=== PATIENT | female | born 1995 | race Caucasian/White ===

== ENCOUNTER 2017-09-07 19:22 | Inpatient (IN) | END 2017-09-10 21:00 | disposition home or self-care (01) | DRG 446 ==

== ENCOUNTER 2017-12-30 15:10 | Emergency (ER) | END 2017-12-30 17:35 | disposition home or self-care (01) ==

== ENCOUNTER 2018-06-17 10:05 | Emergency (ER) | payer OTHER ==
[~2018-06-17] VITALS: Ht 167.6 cm; Wt 76.7 kg
[~2018-06-17 10:05] MED LIST: AMOX1TAB9 PO; LEVE-5 PO; PRENAT PO
[2018-06-17 10:19] VITALS: Ht 167.6 cm; Wt 76.7 kg
[2018-06-17] MEDS ORDERED: ONDANSETRON (ODT) 4 MG TAB ODT STA (12:01)
[2018-06-17] MEDS ORDERED: KETOROLAC 30 MG INJ IM STA (12:01)
--- NOTE | 2018-06-17 12:09 | ERD ---
ER Documentation Chief Complaint Chief Complaint Complains of nausea and vomiting with diarrhea x 3 days HPI 22-year-old female presents for evaluation of vomiting x1 day. Patient admits to 10 episodes of vomiting in the past 24 hours with associated diarrhea. Admits to eating out at [employer] before onset of symptoms. Patient expresses concern over history of gallstones, and states presentation similar to previous episode. Patient denies any alleviating factors states symptoms have been stable with no improvement or worsening over the past 24 hours. No recent fevers, no SOB. ROS All systems reviewed and are negative except as per history of present illness. Medications Home Meds Active Scripts Ondansetron (Ondansetron Odt) 4 Mg Tab.rapdis, 4 MG PO Q6H PRN for NAUSEA AND/OR VOMITING, #10 TAB Prov:STEPHAN LEIVA PA-C 06/17/18 Levetiracetam* (Keppra*) 500 Mg Tablet, 500 MG PO BID, #60 TAB Prov:IESHA STREETER MD 12/30/17 Amoxicillin/Potassium Clav (Amox-Clav 500-125 mg Tablet) 500-125 mg Tab, 1 TAB PO BID for 4 Days, #8 TAB Prov:JOSE CARLOS WAY MD 09/10/17 Reported Medications Multivit/Min/Fol Ac/Iron/Pren* ( S*) 1 Tab Tab, 1 TAB PO DAILY, TAB 10/16/15 Allergies Allergies: Coded Allergies: No Known Allergy (Unverified , 01/17/15) PMhx/Soc History of Surgery: Yes (EMERGENCY X1, LIPOSUCTION + TUMMY TUCK ) Anesthesia Reaction: No Hx Neurological Disorder: No Hx Respiratory Disorders: No Hx Cardiac Disorders: No Hx Psychiatric Problems: No Hx Miscellaneous Medical Probl: No Hx Alcohol Use: No Hx Substance Use: Yes (PER PT., SHE SMOKES MARIJUANA DAILY) Hx Tobacco Use: No Smoking Status: Never smoker FmHx Family History: No diabetes, No coronary disease, No other Physical Exam Vitals Vital Signs Date Temp Pulse Resp B/P (MAP) Pulse Ox O2 O2 Flow FiO2 Time Delivery Rate 06/17/18 82 18 120/65 Room Air 14:09 (83) 06/17/18 98.5 80 20 129/70 98 10:19 (89) Physical Exam Const: No acute distress Head: Atraumatic Eyes: Normal Conjunctiva ENT: Normal External Ears, Nose and Mouth. Moist mucous membranes. Neck: Full range of motion. No meningismus. Resp: Clear to auscultation bilaterally Cardio: Regular rate and rhythm, no murmurs Abd: Soft, non tender, non distended. Normal bowel sounds. Positive Abad sign. No right lower quadrant tenderness. Skin: No petechiae or rashes. Turgor appropriate. Back: No midline or flank tenderness. Full range of motion. No CVA tenderness. Ext: No cyanosis, or edema. Cap refill less than 2 seconds. Neur: Awake and alert Psych: Normal Mood and Affect Result Diagram: 06/17/18 1211 06/17/18 1211 Results 24 hrs Laboratory Tests Test 06/17/18 12:09 06/17/18 12:11 06/17/18 12:21 POC Beta HCG, Qualitative POSITIVE White Blood Count 10.4 10^3/ul Red Blood Count 5.05 10^6/ul Hemoglobin 15.0 g/dl Hematocrit 44.5 % Mean Corpuscular Volume 88.1 fl Mean Corpuscular Hemoglobin 29.7 pg Mean Corpuscular 33.7 g/dl Hemoglobin Concent Red Cell Distribution Width 12.9 % Platelet Count 323 10^3/UL Mean Platelet Volume 10.5 fl Immature Granulocytes % 0.300 % Neutrophils % 81.2 % Lymphocytes % 10.0 % Monocytes % 6.0 % Eosinophils % 2.2 % Basophils % 0.3 % Nucleated Red Blood Cells % 0.0 /100WBC Immature Granulocytes # 0.030 10^3/ul Neutrophils # 8.4 10^3/ul Lymphocytes # 1.0 10^3/ul Monocytes # 0.6 10^3/ul Eosinophils # 0.2 10^3/ul Basophils # 0.0 10^3/ul Nucleated Red Blood Cells # 0.0 10^3/ul Prothrombin Time 12.2 Sec Prothrombin Time Ratio 1.0 INR International 0.89 Normalized Ratio Activated Partial Thromboplast 26.9 Sec Time Urine Color YELLOW Urine Clarity CLOUDY Urine pH 5.0 Urine Specific [place] 1.028 Urine Ketones NEGATIVE mg/dL Urine Nitrite NEGATIVE mg/dL Urine Bilirubin NEGATIVE mg/dL Urine Urobilinogen NEGATIVE mg/dL Urine Leukocyte Esterase NEGATIVE Flory/ul Urine Microscopic RBC 2 /HPF Urine Microscopic WBC 3 /HPF Urine Squamous Epithelial Cells FEW /HPF Urine Bacteria FEW /HPF Urine Mucus MANY /HPF Urine Hemoglobin 1+ mg/dL Urine Glucose NEGATIVE mg/dL Urine Total Protein 1+ mg/dl Sodium Level 141 mmol/L Potassium Level 3.8 mmol/L Chloride Level 109 mmol/L Carbon Dioxide Level 20 mmol/L Anion Gap 12 Blood Urea Nitrogen 12 mg/dl Creatinine 0.61 mg/dl Est Glomerular Filtrat > 60 mL/min Rate mL/min Glucose Level 105 mg/dl Calcium Level 9.6 mg/dl Total Bilirubin 0.6 mg/dl Direct Bilirubin 0.00 mg/dl Indirect Bilirubin 0.6 mg/dl Aspartate Amino 22 IU/L Transf (AST/SGOT) Alanine 24 IU/L Aminotransferase (ALT/SGPT) Alkaline Phosphatase 86 IU/L Total Protein 8.5 g/dl Albumin 4.6 g/dl Globulin 3.90 g/dl Albumin/Globulin Ratio 1.17 Lipase 51 U/L Beta HCG, Quantitative 83274.0 mIU/ml Current Medications Medications Dose Sig/Georgette Start Time Status Last (Trade) Ordered Route PRN Stop Time Admin Dose Reason Admin Ondansetron 4 mg ONCE STAT 06/17/18 DC 06/17/18 HCl (Zofran ODT 12:01 06/17/18 12:19 Odt) 12:03 Ketorolac 30 mg ONCE STAT 06/17/18 DC Tromethamine IM 12:06/17/18 (Toradol) 12:19 650 mg ONCE STAT 06/17/18 DC 06/17/18 Acetaminophen PO 12:18 06/17/18 12:24 (Tylenol 12:20 Tab) Procedures/MDM PROCEDURE: US Abdomen. CLINICAL INDICATION: abdominal pain TECHNIQUE: Multiple real-time images were acquired of the patient's right upper quadrant abdomen and retroperitoneum utilizing a high resolution transducer. COMPARISON: 09/07/17 FINDINGS: The liver demonstrates normal echogenicity. The liver is normal in size and no focal solid lesions are seen. The liver measures 12.8 cm in length. The portal vein is patent with normal direction of flow. No intrahepatic biliary dilatation is seen. No gallstones are identified within the gallbladder. There is no pericholecystic fluid or gallbladder wall thickening. The common bile duct measures 3 mm in maximal dimension. The visualized portions of the pancreas are unremarkable. The tail of the pancreas is not seen. No free fluid is identified. The right kidney is normal in size, and demonstrate normal echogenicity and cortical thickness. The right kidney measures 9.1 cm in long dimension. There is no evidence of hydronephrosis. There are no kidney stones. RPTAT: AA IMPRESSION: Unremarkable right upper quadrant abdominal ultrasound. PROCEDURE: US Pelvis/OB. CLINICAL INDICATION: vaginal bleeding TECHNIQUE: Multiple sonographic images of the pelvis were obtained utilizing a transabdominal and endovaginal technique. The images were reviewed on a PACS workstation. COMPARISON: None. FINDINGS: There is a small cystic structure within the endometrium measuring 1.0 cm which would correspond to a calculated gestational age of 5 weeks and 4 days. No pole is yet visualized. There is a yolk sac seen. The ovaries are normal. No abnormal adnexal masses are present. There is no Doppler flow in the ovaries. The right ovary measures 2.3 x 1.4 x 1.7 cm. The left ovary measures 3.3 x 2.0 x 2.4 cm. There is an 8 mm simple cyst in the left ovary. No significant free fluid is present within the pelvis. RPTAT: AA IMPRESSION: Probable early intrauterine at 5 weeks and 4 days. No pole is yet visualized Close followup ultrasound and hCG is recommended. MDM: This is an otherwise healthy 22-year-old female who presents with vomiting x1 day. Physical exam revealed right upper quadrant tenderness however gallbladder ultrasound negative for cholecystitis, cholelithiasis, gallbladder abnormality. Pt given tylenol 650mg and zofran 4mg ODT while in ED with improve ment in symptoms. Lab findings positive for with a positive urine POC and beta quant. Ultrasound imaging showed gestational age of 5 weeks 4 days. Counseled patient regarding care and need for [facility] follow-up within the next few days. Patient given referral to outside [facility] clinics, however, patient states will be following up with her own [facility] within the next few days. Counseled patient regarding strict ED return precautions and advised to return at the immediate onset of any pelvic pain, cramping, or vaginal bleeding. Patient expressed verbal understanding and agreement to treatment plan. All questions addressed and answered. Departure Diagnosis: Primary Impression: Additional Impression: Vomiting during Condition: Good Referrals: [facility] REFERRAL LIST STEPHAN LEIVA PA-C June 17, 2018 12:09
[2018-06-17] MEDS ORDERED: ACETAMINOPHEN 325 MG TAB PO STA (12:18)
[2018-06-17] MEDS ORDERED: ONDA4TAB14 PO (13:53)
[2018-06-17 14:09] VITALS: BP 120/65; PULSE 82; RESP 18
== END 2018-06-17 14:11 | disposition home or self-care (01) ==
LOC: FTE 10:05
DX: R11.10 Vomiting, unspecified (principal); R10.11 Right upper quadrant pain; Z33.1 Pregnant state, incidental
CPT/HCPCS: 36415; 76705; 76801; 76817; 80053; 81001; 81025; 83690; 84702; 85025; 85610; 85730; 86900; 86901; Z7502; Z7610; J1885